=== PATIENT | female | born 1975 | race Caucasian/White ===

== ENCOUNTER → 2018-02-20 09:46 | Outpatient (CLI) | payer OTHER, MEDICAID, SELFPAY ==
--- NOTE | 2018-02-20 | DI.US.S_ITS ---
PROCEDURE: US PERIPH VENOUS LOW EXTREM RT INDICATIONS: Right leg swelling TECHNIQUE: Real-time imaging, as well as color and pulse Doppler interrogation, were performed of the lower extremity deep veins from the inguinal ligament to the popliteal fossa. COMPARISON: None. FINDINGS: The deep veins are normally compressible, and free of intraluminal thrombus. Color and pulse Doppler demonstrate normal phasic intraluminal flow. There is normal augmentation response to distal compression maneuver. IMPRESSION: Negative for DVT Dictated by: Jose Luis Faustin M.D. on 02/20/2018 at 11:22 Approved by: Jose Luis Faustin M.D. on 02/20/2018 at 11:22
== END ==
PROVIDERS: PCP Nurse Practitioner; Visit Provider Nurse Practitioner
DX: R22.41 Localized swelling, mass and lump, right lower limb (principal)
CPT/HCPCS: 93971

== ENCOUNTER 2018-04-20 18:02 | Emergency (ER) | payer OTHER, MEDICAID, SELFPAY ==
[2018-04-20 18:10] VITALS: BP 165/95; PULSE 95; RESP 22; TEMP 37.1; O2SAT 98
--- NOTE | 2018-04-20 18:12 | ED_ITS ---
HPI - SOB/Dyspnea <ZIGGY Card - Last Filed: 04/20/18 22:32> General Chief Complaint: Shortness of Breath/Dyspnea Stated Complaint: cant breath,cold,sore throat x12 days Time Seen by Provider: 04/20/18 18:10 History of Present Illness 42-year-old female here for complaint of having a cough for the last 12 days. She reports that it started as a sore throat however the sore throat did resolve. She does report that she has had a low-grade fever on and off over this timeframe as well. Positive p.o. intake. She does have a history of asthma. She states that her asthma inhaler has not been helping much. She denies any productive cough. She does have a history of smoking every day. She denies any other concerns or complaints at this time. She is ambulatory into the emergency room. Complaint: cough Related Data Home Medications Medication Instructions Recorded Confirmed beclomethasone dipropionate [Qvar] INH BID #0 04/07/17 ibuprofen 600 mg PO Q6HP PRN #0 04/07/17 Previous Rx's Medication Instructions Recorded levofloxacin [Levaquin] 750 mg PO QDAY #6 tab 04/07/17 prednisone 40 mg PO DAILY #6 tab 04/20/18 Review of Systems <ZIGGY Card - Last Filed: 04/20/18 22:32> Constitutional Denies chills, Reports fever(s), Denies lethargy and Denies weakness Eyes Denies change in vision, Denies eye discharge, Denies irritation and Denies loss of vision ENT Ears, Nose, Mouth, and Throat: Denies change in voice, Denies neck pain, Denies sore throat and Denies throat swelling Cardiovascular Denies chest pain, Denies irregular heart rhythm, Denies lightheadedness, Denies palpitations and Denies orthopnea Respiratory Reports cough and Denies wheezing Gastrointestinal Gastrointestinal: Denies abdominal pain, Denies change in bowel habits, Denies diarrhea, Denies nausea and Denies vomiting Genitourinary Denies hematuria, Denies flank pain, Denies urinary incontinence and Denies urinary urgency Musculoskeletal Denies neck pain Integumentary/Breasts Denies pruritus, Denies erythema, Denies rash and Denies wounds Neurologic Denies confusion, Denies loss of vision and Denies weakness Psychiatric Denies anxiety, Denies confusion, Denies depression, Denies homicidal ideation and Denies suicidal ideation Endocrine Denies palpitations Hematologic/Lymphatic Denies easy bruising Allergic/Immunologic Denies urticaria, Denies throat swelling and Denies wheezing Exam <ZIGGY Card - Last Filed: 04/20/18 22:32> Initial Vital Signs Initial Vital Signs: Vital Signs Temperature 98.7 F 04/20/18 18:10 Pulse Rate 95 H 04/20/18 18:10 Respiratory Rate 22 04/20/18 18:10 Blood Pressure 165/95 H 04/20/18 18:10 Pulse Oximetry 98 04/20/18 18:10 Const General: cooperative and well developed Nutritional Appearance: well nourished Orientation: alert, awake, oriented x3 and not confused HENMT Mouth: oral mucosae normal, oropharynx normal and moist mucous membranes Eyes Conjunctivae: conjunctivae normal Sclera: sclerae normal Pupils: PERRL EOM: EOM intact bilaterally Neck Neck: normal visual inspection, trachea midline, No lymphadenopathy, No midline deformity and No JVD Lymphatic: No lymphedema Resp Effort & Inspection: normal respiratory effort, able to speak in complete sentences, no respiratory distress and no use of accessory muscles Auscultation: no rales, no rhonchi and wheezes lower bilaterally Cardio Rate: regular rate Rhythm: regular rhythm Heart Sounds: no click, no gallops, no murmurs and no rubs Pulses: normal peripheral pulses Skin General: no rashes or lesions noted, No jaundice and No petechiae Neuro General: alert, oriented x3, gait normal and no focal motor deficits Speech: speech normal <Celia Silva DO - Last Filed: 04/21/18 01:07> Initial Vital Signs Initial Vital Signs: Vital Signs Temperature 98.7 F 04/20/18 18:10 Pulse Rate 95 H 04/20/18 18:10 Respiratory Rate 22 04/20/18 18:10 Blood Pressure 165/95 H 04/20/18 18:10 Pulse Oximetry 98 04/20/18 18:10 Course <ZIGGY Card - Last Filed: 04/20/18 22:32> Orders Ordered: ED Orders 04/20/18 18:29 Consult to Respiratory Therapy Evaluate & Treat XR chest 2V Stat Discontinued Medications Albuterol/Ipratropium (Duoneb) 3 ml INH NOW ONE Stop: 04/20/18 18:38 Last Admin: 04/20/18 18:52 Dose: 3 ml Prednisone (Deltasone) 40 mg PO NOW ONE Stop: 04/20/18 19:35 Last Admin: 04/20/18 19:39 Dose: 40 mg Vital Signs - 8 hr 04/20/18 18:10 04/20/18 18:52 04/20/18 19:48 Temperature 98.7 F Pulse Rate 95 H 97 H 94 H Respiratory Rate 22 17 16 Blood Pressure 165/95 H 155/88 H Pulse Oximetry 98 97 99 <Celia Silva DO - Last Filed: 04/21/18 01:07> Orders Ordered: ED Orders 04/20/18 18:29 Consult to Respiratory Therapy Evaluate & Treat XR chest 2V Stat Discontinued Medications Albuterol/Ipratropium (Duoneb) 3 ml INH NOW ONE Stop: 04/20/18 18:38 Last Admin: 04/20/18 18:52 Dose: 3 ml Prednisone (Deltasone) 40 mg PO NOW ONE Stop: 04/20/18 19:35 Last Admin: 04/20/18 19:39 Dose: 40 mg Vital Signs - 8 hr 04/20/18 18:10 04/20/18 18:52 04/20/18 19:48 Temperature 98.7 F Pulse Rate 95 H 97 H 94 H Respiratory Rate 22 17 16 Blood Pressure 165/95 H 155/88 H Pulse Oximetry 98 97 99 MDM - SOB/Dyspnea <ZIGGY Card - Last Filed: 04/20/18 22:32> Imaging Data Chest x-ray: Radiologist's impression: Patient: Gianna Bowling MR#: [id number] : 1975 Acct:[id number] Age/Sex: 42 / F Date of Service: 04/20/18 Loc: ED Accession Number: [id number] Procedure: XR chest 2V Ordering Provider: Adriel Ndiaye PROCEDURE: XR CHEST 2V INDICATIONS: cough for 12 days TECHNIQUE: 2 views of the chest were acquired. COMPARISON: [facility], CR, CHEST 1 VIEW, 04/07/2017, 17:32. [facility], CT, PE STUDY (CTA CHEST), 04/07/2017, 20:37. FINDINGS: Surgical changes and devices: None. Lungs and pleura: No pleural effusions or pneumothorax. Lungs are clear. Mediastinum: Mediastinal contours are normal. Heart size is normal. Bones and chest wall: No suspicious bony abnormalities. Soft tissues appear unremarkable. IMPRESSION: No acute cardiopulmonary disease process. Dictated by: Alexandra Lux MD, PhD on 04/20/2018 at 18:51 Approved by: Alexandra Lux MD, PhD on 04/20/2018 at 18:52 [facility] Narrative Medical decision making narrative: DuoNeb treatment was given in the emergency room by Respiratory therapy which helped her symptoms slightly. X-ray of the chest was obtained and was negative for any acute findings. Signs and symptoms presents as asthma exacerbation most likely due to viral trigger. She is prescribed prednisone short course to help with her symptoms. She is given a spacer for her inhaler that she does not have 1 at home. She is instructed to follow up with the primary care provider in the next few days for re- evaluation. Plenty of fluids and rest. Return emergency room for any worsening symptoms. Discharge Plan Departure Patient Disposition: Home, Self-Care Clinical Impression: Asthma with exacerbation Discharge Date/Time: 04/20/18 19:49 Interventions: ED Discharge Assessment Last Done: 04/20/18 19:48 Instructions: Asthma -- Adult Activity Restrictions/Additional Instructions: Chest x-ray was obtained today and was negative for pneumonia. Signs and symptoms presents as asthma exacerbation most likely due to viral illness. Use currently prescribed inhalers as prescribed. You have been prescribed prednisone steroid to help with inflammation for the next few days use as directed. Follow up with her primary care provider in the next few days for re- evaluation. For any worsening symptoms return to the emergency room. Prescriptions: New prednisone 20 mg tablet 40 mg PO DAILY Qty: 6 RF: 0 No Action ibuprofen 600 MG tablet 600 mg PO Q6HP PRNQty: 0 RF: 0 beclomethasone dipropionate [Qvar] 40 mcg/actuation Aerosol INH BID Qty: 0 RF: 0 levofloxacin [Levaquin] 750 MG tablet 750 mg PO QDAY Qty: 6 RF: 0 Referrals: Gay Cox ARNP [Primary Care Provider] - <Celia Silva DO - Last Filed: 04/21/18 01:07> Cosign ED Attending Cosignature Attestation: I was immediately available in the department for consultation. Documentation has been reviewed. I agree with assessment and plan.
--- NOTE | 2018-04-20 18:29 | DI.RAD.S_ITS ---
PROCEDURE: XR CHEST 2V INDICATIONS: cough for 12 days TECHNIQUE: 2 views of the chest were acquired. COMPARISON: [facility], CR, CHEST 1 VIEW, 04/07/2017, 17:32. [facility], CT, PE STUDY (CTA CHEST), 04/07/2017, 20:37. FINDINGS: Surgical changes and devices: None. Lungs and pleura: No pleural effusions or pneumothorax. Lungs are clear. Mediastinum: Mediastinal contours are normal. Heart size is normal. Bones and chest wall: No suspicious bony abnormalities. Soft tissues appear unremarkable. IMPRESSION: No acute cardiopulmonary disease process. Dictated by: Alexandra Lux MD, PhD on 04/20/2018 at 18:51 Approved by: Alexandra Lux MD, PhD on 04/20/2018 at 18:52
[2018-04-20 18:52] VITALS: PULSE 97; RESP 17; O2SAT 97
[2018-04-20] MEDS: ALBUTEROL/IPRATROPIUM 3 ML AMPUL INH (18:52)
--- NOTE | 2018-04-20 19:12 | RT ---
Patient was instructed on spacer. Patient indicated that she understood. Told patient if she does forget that she has instructions in the spacer handbook as well as the internet for any help.
[2018-04-20] MEDS: predniSONE 20 MG TABLET 40 MG PO (19:39)
[2018-04-20 19:48] VITALS: BP 155/88; PULSE 94; RESP 16; O2SAT 99
== END 2018-04-20 19:49 | disposition home or self-care (01) ==
PROVIDERS: Emergency Provider Nurse Practitioner Family; PCP Nurse Practitioner
DX: J45.901 Unspecified asthma with (acute) exacerbation (principal)
CPT/HCPCS: 71046; 94150; 94640; 99283